=== PATIENT | female | born 1980 | race Asian ===

== ENCOUNTER 2018-07-20 00:05 | Emergency (ER) | payer MEDICARE, MEDICAID ==
[~2018-07-20] VITALS: Ht 157.5 cm; Wt 62.5 kg
[2018-07-20 00:15] VITALS: BP 124/91
[2018-07-20] MEDS ORDERED: HYDR-3965 PO (01:00)
[2018-07-20] MEDS ORDERED: ONDA4TAB9 PO (01:00)
[2018-07-20] MEDS ORDERED: METF-436 PO (01:41)
== END 2018-07-20 01:45 | disposition home or self-care (01) ==
LOC: ER 00:06
DX: F41.9 Anxiety disorder, unspecified (principal); M54.9 Dorsalgia, unspecified; Z76.0 Encounter for issue of repeat prescription; E11.9 Type 2 diabetes mellitus without complications; Z88.6 Allergy status to analgesic agent; Z79.84 Long term (current) use of oral hypoglycemic drugs
CPT/HCPCS: 82948; 99284